=== PATIENT | female | born 1970 | race African-American/Black ===

== ENCOUNTER 2021-03-27 14:19 | Emergency (ER) | payer BC, OTHER ==
[~2021-03-27] VITALS: Ht 162.6 cm; Wt 68.0 kg
[2021-03-27 16:50] VITALS: BP 128/75
[2021-03-27] MEDS ORDERED: KETOROLAC TROMETH 60MG/2ML VIAL IM ONE (17:00)
[2021-03-27] MEDS ORDERED: cefTRIAXone SOD 1,000 MG VL IM ONE (17:00)
== END 2021-03-27 17:17 | disposition home or self-care (01) ==
LOC: ER 14:19
DX: M10.9 Gout, unspecified (principal); E78.5 Hyperlipidemia, unspecified; Z90.49 Acquired absence of other specified parts of digestive tract; Z90.710 Acquired absence of both cervix and uterus
CPT/HCPCS: 93971; 96372; 99284; J0696; J1885